=== PATIENT | male | born 1975 | race African-American/Black ===

== ENCOUNTER 2018-02-23 03:51 | Emergency (ER) | payer MEDICAID ==
[~2018-02-23] VITALS: Ht 180.3 cm; Wt 102.0 kg
[2018-02-23] MEDS ORDERED: SODIUM CHLORIDE 0.9% 1,000 ML IV ONE (05:56)
[2018-02-23] MEDS ORDERED: FAMOTIDINE 20MG/2ML VIAL IV STA (05:56)
[2018-02-23] MEDS ORDERED: MORPHINE SULFATE 4 MG/ML CPJ (NOT FOR IM USE) IV STA (05:56)
[2018-02-23] MEDS ORDERED: ONDANSETRON HCL 4MG/2ML VIAL IV STA (05:56)
[2018-02-23 06:21] LABS: BASOPHILS % 0.8 % (0.0-2.0); EOSINOPHILS % 1.7 % (0.0-5.0); HEMATOCRIT. 43.6 % (42.0-52.0); HEMOGLOBIN. 14.9 g/dL (14.0-18.0); LYMPHOCYTES % 21.4 % (20.0-50.0); MEAN CORPUSCULAR HEMOGLOBIN 30.1 pg (28.0-32.0); MEAN CORPUSCULAR VOLUME 88.1 fL (80.0-94.0); MEAN PLATELET VOLUME 8.5 fl (7.4-10.4); MONOCYTES % 6.8 % (2.0-8.0); NEUTROPHILS % 69.3 % (40.0-76.0); PLATELET 236 x1000/uL (130-400); RED BLOOD CELL COUNT 4.95 mill/uL (4.7-6.1); RED CELL DISTRIBUTION WIDTH 14.3 % (11.6-14.6)
[2018-02-23 06:28] LABS: CHLORIDE 106 mEq/L (98-107)
[2018-02-23 06:29] LABS: CLARITY URINE CLEAR (CLEAR); COLOR URINE YELLOW (YELLOW); KETONES URINE NEGATIVE (NEGATIVE); LEUKOCYTE ESTERASE URINE NEGATIVE (NEGATIVE); NITRITE URINE NEGATIVE (NEGATIVE); OCCULT BLOOD URINE NEGATIVE (NEGATIVE); PROTEIN URINE NEGATIVE (NEGATIVE); SPECIFIC GRAVITY URINE 1.015 (1.005-1.030); UROBILINOGEN URINE 0.2 E.U./dL (0.2-1.0)
[2018-02-23 06:30] LABS: INR 1.1; PARTIAL THROMBOPLASTIN TIME 28.9 sec (23.4-31.0); PROTHROMBIN TIME 11.7 sec (9.4-11.6)
[2018-02-23] MEDS ORDERED: METRONIDAZOLE 500MG TABLET PO ONE (07:45)
[2018-02-23] MEDS ORDERED: LEVOFLOXACIN 500MG TABLET PO ONE (07:45)
[2018-02-23 09:04] VITALS: BP 140/90
== END 2018-02-23 09:25 | disposition home or self-care (01) ==
LOC: ER 04:42
DX: R10.13 Epigastric pain (principal); R11.2 Nausea with vomiting, unspecified; R19.7 Diarrhea, unspecified; I10 Essential (primary) hypertension; R00.1 Bradycardia, unspecified; K52.9 Noninfective gastroenteritis and colitis, unspecified; E11.9 Type 2 diabetes mellitus without complications; F14.10 Cocaine abuse, uncomplicated; F17.210 Nicotine dependence, cigarettes, uncomplicated; Z86.73 Personal history of transient ischemic attack (TIA), and cerebral infarction without residual deficits; Z86.59 Personal history of other mental and behavioral disorders; Z87.19 Personal history of other diseases of the digestive system
CPT/HCPCS: 36415; 71045; 74176; 80053; 81003; 83690; 84484; 85025; 85610; 85730; 93005; 96361; 96374; 96375; 99285; J2270; J2405; J3490; J7030

== ENCOUNTER 2018-03-04 03:28 | Emergency (ER) | payer MEDICAID ==
[~2018-03-04] VITALS: Ht 180.3 cm; Wt 99.0 kg
[2018-03-04] MEDS ORDERED: IBUPROFEN 800MG TABLET PO ONE (04:30)
[2018-03-04 06:02] VITALS: BP 132/70
== END 2018-03-04 06:03 | disposition home or self-care (01) ==
LOC: ER 03:28
DX: S20.221A Contusion of right back wall of thorax, initial encounter (principal); F41.9 Anxiety disorder, unspecified; I10 Essential (primary) hypertension; F32.9 Major depressive disorder, single episode, unspecified; I25.2 Old myocardial infarction; F17.200 Nicotine dependence, unspecified, uncomplicated; E11.9 Type 2 diabetes mellitus without complications; W05.0XXA Fall from non-moving wheelchair, initial encounter; Y93.89 Activity, other specified; Y92.89 Other specified places as the place of occurrence of the external cause; Y99.8 Other external cause status; Z86.73 Personal history of transient ischemic attack (TIA), and cerebral infarction without residual deficits; Z98.890 Other specified postprocedural states
CPT/HCPCS: 72070; 72100; 99284

== ENCOUNTER 2018-10-02 03:19 | Emergency (ER) | payer MEDICAID ==
[~2018-10-02] VITALS: Ht 180.3 cm; Wt 103.0 kg
[2018-10-02 03:29] VITALS: BP 191/99
== END 2018-10-02 08:55 | disposition left against medical advice (07) ==
LOC: ER 03:19
DX: Z53.21 Procedure and treatment not carried out due to patient leaving prior to being seen by health care provider (principal)
CPT/HCPCS: 93005

== ENCOUNTER 2019-01-12 03:23 | Emergency (ER) | payer MEDICAID ==
[~2019-01-12] VITALS: Ht 177.8 cm; Wt 100.0 kg
[~2019-01-12 03:23] MED LIST: ABIL10 PO; ASPI-1159 PO; ATOR10TA PO; METF-414 PO; METO25TA6 PO
[2019-01-12] MEDS ORDERED: KETOROLAC 60MG/2ML VIAL IM ONE (07:00)
[2019-01-12 07:01] VITALS: BP 130/85
== END 2019-01-12 07:36 | disposition home or self-care (01) ==
LOC: ER 03:23
DX: G89.29 Other chronic pain (principal); M54.5 Low back pain; I10 Essential (primary) hypertension; E78.00 Pure hypercholesterolemia, unspecified; E11.9 Type 2 diabetes mellitus without complications; I25.2 Old myocardial infarction; Z98.890 Other specified postprocedural states; Z87.891 Personal history of nicotine dependence; Z87.828 Personal history of other (healed) physical injury and trauma; Z99.3 Dependence on wheelchair
CPT/HCPCS: 96372; 99283; J1885

== ENCOUNTER 2019-01-25 06:17 | Emergency (ER) | payer MEDICAID ==
[~2019-01-25] VITALS: Ht 177.8 cm; Wt 101.5 kg
[2019-01-25] MEDS ORDERED: MORPHINE SULFATE 10 MG/ML CPJ IM ONE (12:00)
[2019-01-25] MEDS ORDERED: KETOROLAC 30MG/ML VIAL IM ONE (12:00)
[2019-01-25 12:52] VITALS: BP 147/85
== END 2019-01-25 13:57 | disposition home or self-care (01) ==
LOC: ER 06:17
DX: S70.01XA Contusion of right hip, initial encounter (principal); F10.20 Alcohol dependence, uncomplicated; J44.9 Chronic obstructive pulmonary disease, unspecified; E78.00 Pure hypercholesterolemia, unspecified; E11.9 Type 2 diabetes mellitus without complications; I10 Essential (primary) hypertension; R56.9 Unspecified convulsions; I25.2 Old myocardial infarction; Z86.73 Personal history of transient ischemic attack (TIA), and cerebral infarction without residual deficits; Z87.891 Personal history of nicotine dependence; Z98.890 Other specified postprocedural states; Z79.899 Other long term (current) drug therapy; Z99.3 Dependence on wheelchair; W05.0XXA Fall from non-moving wheelchair, initial encounter; Y93.89 Activity, other specified; Y92.89 Other specified places as the place of occurrence of the external cause; Y99.8 Other external cause status; Y90.9 Presence of alcohol in blood, level not specified
CPT/HCPCS: 73502; 96372; 99283; J1885; J2270; Z7610

== ENCOUNTER 2019-02-10 12:36 | Emergency (ER) | payer MEDICAID ==
[~2019-02-10] VITALS: Ht 177.8 cm; Wt 93.1 kg
[2019-02-10 13:52] VITALS: BP 144/86
[2019-02-10 15:17] LABS: CLARITY URINE CLEAR (CLEAR); COLOR URINE YELLOW (YELLOW); KETONES URINE NEGATIVE (NEGATIVE); LEUKOCYTE ESTERASE URINE NEGATIVE (NEGATIVE); NITRITE URINE NEGATIVE (NEGATIVE); OCCULT BLOOD URINE NEGATIVE (NEGATIVE); PROTEIN URINE NEGATIVE (NEGATIVE); SPECIFIC GRAVITY URINE 1.001 (1.005-1.030); UROBILINOGEN URINE 0.2 E.U./dL (0.2-1.0)
[2019-02-10 15:34] LABS: *BARBITURATES SCREEN URINE NEGATIVE (NEGATIVE); CANNABINOID URINE SCREEN NEGATIVE (NEGATIVE); OPIATES URINE SCREEN NEGATIVE (NEGATIVE); PHENCYCLIDINE URINE SCREEN NEGATIVE (NEGATIVE)
[2019-02-10 15:35] LABS: *AMPHETAMINES SCREEN URINE NEGATIVE (NEGATIVE); *BENZODIAZEPINES SCREEN URINE NEGATIVE (NEGATIVE); *COCAINE SCREEN URINE NEGATIVE (NEGATIVE); METHADONE URINE SCREEN NEGATIVE (NEGATIVE)
== END 2019-02-10 16:02 | disposition left against medical advice (07) ==
LOC: ER 12:36
DX: Z53.21 Procedure and treatment not carried out due to patient leaving prior to being seen by health care provider (principal)
CPT/HCPCS: 80305

== ENCOUNTER 2019-04-08 01:12 | Emergency (ER) | payer MEDICAID ==
[~2019-04-08] VITALS: Ht 180.3 cm; Wt 98.0 kg
[2019-04-08 01:35] VITALS: BP 159/91
[2019-04-08] MEDS ORDERED: IBUPROFEN 600MG TABLET PO ONE (02:00)
[2019-04-08] MEDS ORDERED: BACITRACIN ZINC OINT UDPKT TOP ONE (02:00)
== END 2019-04-08 03:56 | disposition home or self-care (01) ==
LOC: ER 01:12
DX: S90.01XA Contusion of right ankle, initial encounter (principal); E78.00 Pure hypercholesterolemia, unspecified; F32.9 Major depressive disorder, single episode, unspecified; F41.9 Anxiety disorder, unspecified; J44.9 Chronic obstructive pulmonary disease, unspecified; E11.9 Type 2 diabetes mellitus without complications; I10 Essential (primary) hypertension; I25.2 Old myocardial infarction; F14.10 Cocaine abuse, uncomplicated; Z98.890 Other specified postprocedural states; Z87.891 Personal history of nicotine dependence; Z79.82 Long term (current) use of aspirin; Z79.899 Other long term (current) drug therapy; W05.0XXA Fall from non-moving wheelchair, initial encounter; Y93.89 Activity, other specified; Y92.89 Other specified places as the place of occurrence of the external cause; Y99.8 Other external cause status
CPT/HCPCS: 73610; 73630; 99283

== ENCOUNTER 2019-06-10 17:01 | Emergency (ER) | payer MEDICAID ==
[~2019-06-10] VITALS: Ht 180.3 cm; Wt 102.0 kg
[~2019-06-10 17:01] MED LIST changes: -ASPI-1159 PO; +ASPI-1393 PO
[2019-06-10 18:16] LABS: BASOPHILS % 0.5 % (0.0-2.0); EOSINOPHILS % 2.4 % (0.0-5.0); HEMATOCRIT. 38.2 % (42.0-52.0); HEMOGLOBIN. 13.1 g/dL (14.0-18.0); LYMPHOCYTES % 23.1 % (20.0-50.0); MEAN CORPUSCULAR HEMOGLOBIN 30.9 pg (28.0-32.0); MEAN CORPUSCULAR VOLUME 89.8 fL (80.0-94.0); MEAN PLATELET VOLUME 8.3 fl (7.4-10.4); PLATELET 192 x1000/uL (130-400); RED BLOOD CELL COUNT 4.26 mill/uL (4.7-6.1); RED CELL DISTRIBUTION WIDTH 13.5 % (11.6-14.6)
[2019-06-10 18:18] LABS: INR 1.1; PROTHROMBIN TIME 11.3 sec (9.6-11.0)
[2019-06-10 18:21] LABS: CHLORIDE 109 mEq/L (98-107)
[2019-06-10 18:34] LABS: CLARITY URINE CLEAR (CLEAR); COLOR URINE YELLOW (YELLOW); KETONES URINE NEGATIVE (NEGATIVE); LEUKOCYTE ESTERASE URINE NEGATIVE (NEGATIVE); NITRITE URINE NEGATIVE (NEGATIVE); OCCULT BLOOD URINE NEGATIVE (NEGATIVE); PROTEIN URINE NEGATIVE (NEGATIVE); SPECIFIC GRAVITY URINE 1.023 (1.005-1.030)
[2019-06-10] MEDS: ACETAMINOPHEN 325MG TABLET PO ONE (19:24)
[2019-06-10] MEDS: ONDANSETRON 4MG ODT PO ONE (19:24)
[2019-06-10] MEDS: KETOROLAC 60MG/2ML VIAL IM ONE (19:24)
[2019-06-10 21:00] VITALS: BP 147/77
== END 2019-06-10 21:15 | disposition home or self-care (01) ==
LOC: ER 17:05
DX: R10.9 Unspecified abdominal pain (principal); J45.909 Unspecified asthma, uncomplicated; E11.9 Type 2 diabetes mellitus without complications; I10 Essential (primary) hypertension; I25.2 Old myocardial infarction; R11.0 Nausea; Z86.73 Personal history of transient ischemic attack (TIA), and cerebral infarction without residual deficits; Z98.890 Other specified postprocedural states; Z79.899 Other long term (current) drug therapy; Z96.662 Presence of left artificial ankle joint
CPT/HCPCS: 36415; 80053; 81003; 83690; 85025; 85610; 96372; 99283; J1885; Q0162

== ENCOUNTER 2020-01-31 17:41 | Emergency (ER) | payer MEDICAID ==
[~2020-01-31] VITALS: Ht 180.3 cm; Wt 107.0 kg
[~2020-01-31 17:41] MED LIST changes: -ASPI-1393 PO; +ASPI-1497 PO
[2020-01-31] MEDS ORDERED: IBUPROFEN 600MG TABLET PO STA (18:37)
[2020-01-31 20:58] VITALS: BP 149/86
== END 2020-01-31 20:59 | disposition home or self-care (01) ==
LOC: ER 17:41
DX: S30.0XXA Contusion of lower back and pelvis, initial encounter (principal); I10 Essential (primary) hypertension; E78.00 Pure hypercholesterolemia, unspecified; E11.9 Type 2 diabetes mellitus without complications; W18.39XA Other fall on same level, initial encounter; Y93.89 Activity, other specified; Y92.89 Other specified places as the place of occurrence of the external cause; Y99.8 Other external cause status; Z87.19 Personal history of other diseases of the digestive system; Z79.899 Other long term (current) drug therapy; Z79.82 Long term (current) use of aspirin
CPT/HCPCS: 72100; 99283

== ENCOUNTER 2020-03-31 19:15 | Inpatient (IN) | payer MEDICAID ==
[~2020-03-31] VITALS: Ht 180.3 cm; Wt 104.3 kg
[2020-03-31 21:50] LABS: BASOPHILS % 0.7 % (0.0-2.0); EOSINOPHILS % 3.9 % (0.0-5.0); HEMATOCRIT. 39.6 % (42.0-52.0); HEMOGLOBIN. 13.6 g/dL (14.0-18.0); LYMPHOCYTES % 31.8 % (20.0-50.0); MEAN CORPUSCULAR HEMOGLOBIN 31.4 pg (28.0-32.0); MEAN CORPUSCULAR VOLUME 91.1 fL (80.0-94.0); MEAN PLATELET VOLUME 8.2 fl (7.4-10.4); MONOCYTES % 9.3 % (2.0-8.0); NEUTROPHILS % 54.3 % (40.0-76.0); PLATELET 194 x1000/uL (130-400); RED BLOOD CELL COUNT 4.34 mill/uL (4.7-6.1); RED CELL DISTRIBUTION WIDTH 14.2 % (11.6-14.6)
[2020-03-31 21:58] LABS: CHLORIDE 107 mEq/L (98-107)
[2020-03-31] MEDS ORDERED: ACETAMINOPHEN 325MG TABLET PO ONE (23:30)
[2020-04-01] VITALS (7 sets, daily range): BP systolic 130–178; BP diastolic 1–111
[2020-04-01] MEDS ORDERED: ACETAMINOPHEN 325MG TABLET PO PRN (02:00)
[2020-04-01] MEDS ORDERED: PHEN100C4 PO (02:05)
[2020-04-01] MEDS: ARIPIPRAZOLE 5MG TABLET PO SCH (08:21)
[2020-04-01] MEDS: METFORMIN HCL 500MG TABLET PO SCH ×2 (08:21→17:16)
[2020-04-01] MEDS: MORPHINE SULFATE 2 MG/ML CPJ (NOT FOR IM USE) IV PRN (08:22)
[2020-04-01] MEDS: ASPIRIN 81MG EC TABLET PO SCH (08:22)
[2020-04-01] MEDS: METOPROLOL TARTRATE 50MG TABLET PO SCH ×2 (08:22→20:26)
[2020-04-01] MEDS ORDERED: MEDICATION NOT ON FORMULARY EA (Aripiprazole (Abilify) 1 TAB) PO SCH (09:00)
[2020-04-01] MEDS ORDERED: ENOXAPARIN 30MG/0.3ML SYR SUBCUT SCH ×2 (09:00)
[2020-04-01] MEDS ORDERED: CLONIDINE 0.1MG TABLET PO PRN (09:30)
[2020-04-01 10:45] LABS: BASOPHILS % 0.8 % (0.0-2.0); HEMATOCRIT. 39.3 % (42.0-52.0); HEMOGLOBIN. 13.5 g/dL (14.0-18.0); LYMPHOCYTES % 26.6 % (20.0-50.0); MEAN CORPUSCULAR HEMOGLOBIN 31.2 pg (28.0-32.0); MEAN CORPUSCULAR VOLUME 90.9 fL (80.0-94.0); MEAN PLATELET VOLUME 8.4 fl (7.4-10.4); MONOCYTES % 8.4 % (2.0-8.0); NEUTROPHILS % 60.2 % (40.0-76.0); PLATELET 194 x1000/uL (130-400); RED BLOOD CELL COUNT 4.32 mill/uL (4.7-6.1); RED CELL DISTRIBUTION WIDTH 14.4 % (11.6-14.6)
[2020-04-01 11:29] LABS: CHLORIDE 110 mEq/L (98-107)
[2020-04-01 11:40] LABS: HDL CHOLESTEROL 46 mg/dL (40-59)
[2020-04-01 11:42] LABS: LDL CHOLESTEROL 80 mg/dL (5-100)
[2020-04-01 11:53] LABS: *AMPHETAMINES SCREEN URINE NEGATIVE (NEGATIVE); *BARBITURATES SCREEN URINE NEGATIVE (NEGATIVE)
[2020-04-01 11:55] LABS: *BENZODIAZEPINES SCREEN URINE NEGATIVE (NEGATIVE); METHADONE URINE SCREEN NEGATIVE (NEGATIVE); OPIATES URINE SCREEN PRESUMTIVE POSITIVE (NEGATIVE)
[2020-04-01 11:56] LABS: PHENCYCLIDINE URINE SCREEN NEGATIVE (NEGATIVE)
[2020-04-01 11:57] LABS: CANNABINOID URINE SCREEN NEGATIVE (NEGATIVE)
[2020-04-01 12:06] LABS: *COCAINE SCREEN URINE PRESUMTIVE POSITIVE (NEGATIVE)
[2020-04-01] MEDS: LISINOPRIL 5MG TABLET PO SCH ×2 (12:15→20:26)
[2020-04-01] MEDS ORDERED: PHENYTOIN SODIUM EXTENDED 100MG CAPSULE PO NR ×2 (17:21→18:30)
[2020-04-01] MEDS: PHENYTOIN SODIUM EXTENDED 100MG CAPSULE PO SCH (20:26)
[2020-04-01] MEDS: ATORVASTATIN CALCIUM 20MG TABLET PO SCH (20:26)
[2020-04-01] MEDS: ENOXAPARIN 30MG/0.3ML SYR SUBCUT SCH (20:27)
[2020-04-02] VITALS: BP 130/70
[2020-04-02] MEDS: MORPHINE SULFATE 2 MG/ML CPJ (NOT FOR IM USE) IV PRN ×2 (03:35→21:08)
[2020-04-02 04:00] VITALS: BP 123/85
[2020-04-02 08:00] VITALS: BP 123/87
[2020-04-02] MEDS: LISINOPRIL 5MG TABLET PO SCH ×2 (09:06→21:07)
[2020-04-02] MEDS: ENOXAPARIN 30MG/0.3ML SYR SUBCUT SCH ×2 (09:06→21:08)
[2020-04-02] MEDS: METOPROLOL TARTRATE 50MG TABLET PO SCH ×2 (09:06→21:08)
[2020-04-02] MEDS: ASPIRIN 81MG EC TABLET PO SCH (09:06)
[2020-04-02] MEDS: METFORMIN HCL 500MG TABLET PO SCH (09:06)
[2020-04-02] MEDS: ARIPIPRAZOLE 5MG TABLET PO SCH (09:06)
[2020-04-02 12:00] VITALS: BP 136/96
[2020-04-02 16:00] VITALS: BP 124/86
[2020-04-02 20:00] VITALS: BP 122/70
[2020-04-02] MEDS: PHENYTOIN SODIUM EXTENDED 100MG CAPSULE PO SCH (21:07)
[2020-04-02] MEDS: ATORVASTATIN CALCIUM 20MG TABLET PO SCH (21:07)
[2020-04-03] VITALS: BP 121/79
[2020-04-03 04:00] VITALS: BP_SYST 135; BP_SYST 136; BP_SYST 138; BP_DIAS 83; BP_DIAS 91; BP_DIAS 93
[2020-04-03] MEDS: MORPHINE SULFATE 2 MG/ML CPJ (NOT FOR IM USE) IV PRN (04:19)
[2020-04-03 08:00] VITALS: BP 147/87
[2020-04-03] MEDS: ARIPIPRAZOLE 5MG TABLET PO SCH (09:15)
[2020-04-03] MEDS: ENOXAPARIN 30MG/0.3ML SYR SUBCUT SCH (09:15)
[2020-04-03] MEDS: ASPIRIN 81MG EC TABLET PO SCH (09:16)
[2020-04-03] MEDS: LISINOPRIL 5MG TABLET PO SCH (09:16)
[2020-04-03] MEDS: METOPROLOL TARTRATE 50MG TABLET PO SCH (09:17)
[2020-04-03] MEDS: METFORMIN HCL 500MG TABLET PO SCH ×2 (09:17→17:53)
[2020-04-03 12:02] VITALS: BP 138/91
[2020-04-03 18:13] VITALS: BP 133/86
== END 2020-04-03 20:20 | disposition home or self-care (01) | DRG 48 ==
LOC: ER 19:15 → MICUSO 23:11 → EDBEDREQTM 23:28 → EDBEDREQ 23:28 → ENRESERV 23:57 → 6WST 04-01 00:57
PROVIDERS: ADMIT Internal Medicine; ATTEND Internal Medicine
DX: G90.8 Other disorders of autonomic nervous system (principal); I27.20 Pulmonary hypertension, unspecified; D64.9 Anemia, unspecified; E11.9 Type 2 diabetes mellitus without complications; E78.00 Pure hypercholesterolemia, unspecified; E78.5 Hyperlipidemia, unspecified; I95.1 Orthostatic hypotension; F14.90 Cocaine use, unspecified, uncomplicated; F17.210 Nicotine dependence, cigarettes, uncomplicated; G40.909 Epilepsy, unspecified, not intractable, without status epilepticus; J44.9 Chronic obstructive pulmonary disease, unspecified; W18.39XA Other fall on same level, initial encounter; I25.118 Atherosclerotic heart disease of native coronary artery with other forms of angina pectoris; I10 Essential (primary) hypertension; I25.2 Old myocardial infarction; Z86.73 Personal history of transient ischemic attack (TIA), and cerebral infarction without residual deficits; Z95.5 Presence of coronary angioplasty implant and graft; Z71.3 Dietary counseling and surveillance; Z71.6 Tobacco abuse counseling; Y93.89 Activity, other specified; Y92.89 Other specified places as the place of occurrence of the external cause; Y99.8 Other external cause status
CPT/HCPCS: 36415; 71045; 80048; 80053; 80061; 80185; 80305; 82962; 83036; 83735; 83880; 84484; 85025; 93005; 93306; 93880; 99285; J1650; J2270

== ENCOUNTER 2020-12-14 13:24 | Emergency (ER) | payer MEDICAID ==
[~2020-12-14] VITALS: Ht 182.9 cm; Wt 100.0 kg
[~2020-12-14 13:24] MED LIST changes: +PHEN100C4 PO
[2020-12-14] MEDS: ACETAMINOPHEN 325MG TABLET PO ONE (14:15)
[2020-12-14 15:58] VITALS: BP 133/78
== END 2020-12-14 15:59 | disposition home or self-care (01) ==
LOC: ER 14:08
DX: S82.492A Other fracture of shaft of left fibula, initial encounter for closed fracture (principal); W18.39XA Other fall on same level, initial encounter; Y93.89 Activity, other specified; Y92.89 Other specified places as the place of occurrence of the external cause; Y99.8 Other external cause status; E11.9 Type 2 diabetes mellitus without complications; E78.00 Pure hypercholesterolemia, unspecified; I10 Essential (primary) hypertension; I25.2 Old myocardial infarction; Z87.891 Personal history of nicotine dependence; Z79.899 Other long term (current) drug therapy
CPT/HCPCS: 73502; 73562; 99284